=== PATIENT | female | born 1990 ===

== ENCOUNTER 2025-09-16 19:18 | Emergency (ER) | payer OTHER, SELFPAY ==
[2025-09-16 19:24] VITALS: BP 121/88; PULSE 94; TEMP 36.8; O2SAT 98; BMI 25.4
--- NOTE | 2025-09-16 19:32 | ED.HEATRA1 ---
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 She denies loss of consciousness but states she had to lay there for a while to get her bearings. She went to urgent care and was referred to the emergency department. She has some tenderness in the right frontal area of her forehead and mild photophobia. She denies any nausea or vomiting. She also has some pain in the right elbow and thinks she landed on her right elbow and has pain in the medial aspect of her left knee with ambulation. She flatly denies the possibility of . She has no gross focal deficits. She took 2 Tylenol before coming to the emergency department. Related Data Home Medications ?Medication ?Instructions ?Recorded ?Confirmed control pill 09/16/25 Allergies Allergy/AdvReac Type Severity Reaction Status Date / Time No Known Drug Allergies Allergy Verified 09/16/25 19:28 Opioid HPI Opioid Management Most Recent Pain and Opioid Data: Last Pain Scale 8 Today, 20:28 Last MAR Pain Assessment Today, 20:28 Review of Systems ROS Status of ROS 10 or more systems reviewed and unremarkable except as noted in history and below Exam Narrative Exam Narrative: Vital signs and Nursing Notes reviewed: Patient is afebrile with normal pulse, normal blood pressure, she is not hypoxic with pulse ox of 98% on room air General: Awake, alert, oriented, no acute distress, lying comfortably on the stretcher-GCS 15 HEENT: Normocephalic, mild tenderness over the right eyebrow with no hematoma, laceration or abrasion noted, mucous membranes are moist and pink, eyes are clear, pupils are equal and reactive, mild photophobia noted otherwise normal conjunctiva, vision is grossly intact, posterior pharynx is normal in appearance. Tympanic membranes are normal bilaterally Neck: Supple, no midline bony vertebral tenderness or step-off Chest: Lungs are clear to auscultation with good air entry, there is no wheezing rhonchi or rales appreciated no accessory muscle use, patient is speaking in complete sentences-no chest wall tenderness to palpation CVS: Regular rate and rhythm S1-S2, no murmurs rubs or gallops, pulses are brisk and equal bilaterally ABD: Soft, nondistended, nontender, no rebound guarding or rigidity, bowel sounds are normal, no pulsatile masses appreciated Extremities: Moving all extremities, mild tenderness without abrasion or swelling to the left medial knee. Joint is stable, there is also mild tenderness to the medial aspect of the olecranon on the right. Electronic Technologist strength is intact Skin: Normal in appearance without rash,pallor, petechiae or purpura Neuro: No focal deficits Constitutional Vital Signs, click to edit/add: Last Vital Signs Temp 98.2 F 09/16/25 19:24 Pulse 94 H 09/16/25 19:24 Resp 18 09/16/25 19:24 BP 121/88 09/16/25 19:24 Pulse Ox 98 09/16/25 19:24 O2 Del Method Room Air 09/16/25 19:24 Course Vital Signs Vital signs: Vital Signs Temperature 98.2 F 09/16/25 19:24 Pulse Rate 94 H 09/16/25 19:24 Respiratory Rate 18 09/16/25 19:24 Blood Pressure 121/88 09/16/25 19:24 Pulse Oximetry 98 09/16/25 19:24 Oxygen Delivery Method Room Air 09/16/25 19:24 Temperature 98.2 F 09/16/25 19:24 Pulse Rate 94 H 09/16/25 19:24 Respiratory Rate 18 09/16/25 19:24 Blood Pressure 121/88 09/16/25 19:24 Pulse Oximetry 98 09/16/25 19:24 Oxygen Delivery Method Room Air 09/16/25 19:24 MDM - Head Injury MDM Narrative Medical decision making narrative: 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 She slipped on the ice and struck her forehead on the ice prior to coming to the emergency department. She had taken some Tylenol prior to arrival but had some mild tenderness over her right eyebrow without any hematoma or other notable abnormality. She had some mild photophobia otherwise her vision is intact. Neuroexam is normal. She has some mild tenderness to the medial aspect of the left knee and right elbow. CT scan of the brain is negative for acute findings. X-ray of the left knee is negative for acute findings and x-ray of the right elbow shows mild fat pad elevation concerning for effusion but no fracture. She was medicated with a dose of ibuprofen once the CT scan of her brain resulted and her right elbow was placed in an Abilio wrap. [facility] paperwork was filled out as the patient fell while on the job as a truck sales manager at [employer]. She is traveling back to [place] in 2 days but will be given [facility] information prior to discharge. Imaging Data CT scan - head: Radiologist's impression: ITS Impressions Elbow X-Ray 09/16/25 19:37 IMPRESSION: Negative acute osseous abnormality. Impression dictated by: Austin Philip M.D. 09/16/2025 8:33 PM Dictation Location: [facility] Electronically authenticated by: [id number] Y Date: 09/16/2025 20:[address] 09/16/25 19:37 IMPRESSION: NO ACUTE INTRACRANIAL ABNORMALITY. Impression dictated by: Austin Phliip M.D. 09/16/2025 8:33 PM Dictation Location: [facility] Electronically authenticated by: [id number] Y Date: 09/16/2025 20:33 Knee X-Ray 09/16/25 19:37 IMPRESSION: Negative acute osseous abnormality. Impression dictated by: Austin Philip M.D. 09/16/2025 8:30 PM Dictation Location: [facility] Electronically authenticated by: [id number] Y Date: 09/16/2025 20:30 Discharge Plan Discharge Chief Complaint: Head Injury Clinical Impression: Closed head injury, Elbow sprain, Contusion of knee, left Patient Disposition: Home, Self-Care Time of Disposition Decision: 20:57 Condition: Good Prescriptions / Home Meds: No Action control pill Print Language: Divehi Instructions: How to Use an Elastic Bandage (ED), Head Injury (ED), Contusion in Adults (ED), Elbow Sprain (ED)
--- NOTE | 2025-09-16 19:37 | CT_ITS ---
The [address] [address] Patient Name: KIRT PUENTE MRN: [id number] date: 1990 Sex: F Assigned Patient Location: ER Current Patient Location: ER Accession/Order Number: [id number] Exam Date: 09/16/2025 19:45 Report Date: 09/16/2025 20:33 At the request of: DELGADO SARMIENTO MD Procedure: CT head/brain wo con CT BRAIN WITHOUT CONTRAST: CLINICAL HISTORY: fell on ice, right forehead tenderness COMPARISON: None TECHNIQUE: Contiguous axial unenhanced images were obtained through the brain. This CT exam was performed using one or more following dose reduction techniques: Automated exposure control, adjustment of the mA and/or kV according to patient size, or use of iterative reconstruction technique. FINDINGS: There is no evidence of midline shift, intra or extra-axial fluid collection, hemorrhage or CT evidence of of acute large vascular distribution stroke. Visualized intraorbital contents appear unremarkable. Visualized paranasal sinuses are clear. The surrounding soft tissues are normal. CT/CT head/brain wo con IMPRESSION: NO ACUTE INTRACRANIAL ABNORMALITY. Impression dictated by: Austin Philip M.D. 09/16/2025 8:33 PM Dictation Location: [place] [address] Electronically authenticated by: [id number] Y Date: 09/16/2025 20:33
--- NOTE | 2025-09-16 19:37 | XR_ITS ---
The [address] [address] Patient Name: KIRT PUENTE MRN: [id number] date: 1990 Sex: F Assigned Patient Location: ER Current Patient Location: ER Accession/Order Number: [id number] Exam Date: 09/16/2025 19:52 Report Date: 09/16/2025 20:33 At the request of: DELGADO SARMIENTO MD Procedure: XR elbow RT min 3V 3 views right elbow CLINICAL HISTORY: fell on ice, landed on right elbow COMPARISON: None FINDINGS: No fracture dislocation noted. Elevation anterior fat pad may raise possibility for small effusions. Soft tissues unremarkable. XR/XR elbow RT min 3V IMPRESSION: Negative acute osseous abnormality. Impression dictated by: Austin Philip M.D. 09/16/2025 8:33 PM Dictation Location: [place] [address] Electronically authenticated by: [id number] Y Date: 09/16/2025 20:33
--- NOTE | 2025-09-16 19:37 | XR_ITS ---
[address] [address] Patient Name: KIRT PUENTE MRN: [id number] date: 1990 Sex: F Assigned Patient Location: ER Current Patient Location: ER Accession/Order Number: [id number] Exam Date: 09/16/2025 19:52 Report Date: 09/16/2025 20:30 At the request of: DELGADO SARMIENTO MD Procedure: XR knee LT 4V 4 views left knee CLINICAL HISTORY: fell on ice, left medial knee pain COMPARISON: None FINDINGS: No fractures or dislocation. Joint spaces preserved. Soft tissues unremarkable. XR/XR knee LT 4V IMPRESSION: Negative acute osseous abnormality. Impression dictated by: Austin Philip M.D. 09/16/2025 8:30 PM Dictation Location: [place] [address] Electronically authenticated by: [id number] Y Date: 09/16/2025 20:30
[2025-09-16] MEDS: ONDANSETRON 4 MG RAPDIS TABLET SL (20:28)
[2025-09-16] MEDS: IBUPROFEN 600 MG TABLET PO (20:28)
== END 2025-09-16 21:44 | disposition home or self-care (01) ==
LOC: ER 21:12
PROVIDERS: Emergency Provider Emergency Medicine
DX: S09.8XXA Other specified injuries of head, initial encounter (principal); S53.401A Unspecified sprain of right elbow, initial encounter; S80.02XA Contusion of left knee, initial encounter; W00.0XXA Fall on same level due to ice and snow, initial encounter
CPT/HCPCS: 70450; 73080; 73564; 99285; Q0162